=== PATIENT | male | born 1955 | race Caucasian/White ===

== ENCOUNTER 2018-10-05 08:43 | Inpatient (IN) | payer OTHER ==
[2018-10-05 09:37] VITALS: BMI 21.3
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
[2018-10-05] MEDS ORDERED: BISMUTH SUBSALICYLATE 524 MG/30 ML UD PO PRN (10:37)
[2018-10-05] MEDS ORDERED: MAG HYDROX/AL HYDROX/SIMETH 30 ML UNIT-DOSE CUP PO PRN (10:37)
[2018-10-05] MEDS ORDERED: hydrOXYzine PAMOATE 25 MG CAPSULE (FP) PO PRN (10:37)
[2018-10-05] MEDS ORDERED: chlordiazePOXIDE HCL 25 MG CAPSULE PO PRN (10:37)
[2018-10-05] MEDS ORDERED: MENTHOL/PHENOL 1 EACH UD MM PRN (10:37)
[2018-10-05] MEDS ORDERED: ACETAMINOPHEN 325 MG TABLET (FP) PO PRN ×2 (10:37)
[2018-10-05] MEDS ORDERED: MELATONIN 5 MG TABLETS PO PRN (10:37)
[2018-10-05] MEDS ORDERED: METHOCARBAMOL 500 MG TABLET PO PRN (10:37)
[2018-10-05] MEDS ORDERED: IBUPROFEN 400 MG TABLET (FP) PO PRN (10:37)
[2018-10-05] MEDS: NICOTINE 21 MG/24 HOURS TOPICAL PATCH TD SCH (11:48)
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
[2018-10-05 14:46] LABS: ALBUMIN 4.2 g/dl (3.4-5.0); BILIRUBIN,TOTAL 1.7 mg/dL (0.2-1); BLOOD UREA NITROGEN 8.2 mg/dL (7-18); CALCIUM 9.8 mg/dL (8.5-10.1); CREATININE 0.8 mg/dL (0.55-1.3); POTASSIUM 3.8 mmol/L (3.5-5.1); TOT PROT 6.6 g/dl (6.4-8.2)
[2018-10-05 14:51] LABS: HEMATOCRIT 40.6 % (35.4-49); HEMOGLOBIN 13.8 GM/dL (11.7-16.9); MCH 29.1 pg (25.7-33.7); MCHC 33.9 g/dl (32.0-35.9); MEAN CELL VOLUME 85.9 fl (80-96); MEAN PLT VOLUME 8.6 fl (7.5-11.1); RBC 4.73 M/mm3 (4.00-5.60); RDW 14.6 % (11.9-15.9); WHITE BLOOD COUNT 7.1 K/mm3 (4.0-10.0)
[2018-10-05 15:04] LABS: PLATELET COUNT 261 K/MM3 (134-434)
[2018-10-05] MEDS: SERTRALINE HCL 50 MG TABLET (FP) PO SCH (16:01)
[2018-10-05] MEDS: chlordiazePOXIDE HCL 25 MG CAPSULE PO SCH ×2 (17:55→22:11)
[2018-10-05] MEDS: traZODone HCL 100 MG TABLET (FP) PO SCH (22:11)
[2018-10-05] MEDS: THIAMINE HCL 100 MG TABLET (FP) PO SCH (22:11)
[2018-10-05] MEDS: LITHIUM CARBONATE 450 MG TABLET.ER PO SCH (22:11)
[2018-10-06] MEDS: chlordiazePOXIDE HCL 25 MG CAPSULE PO SCH ×4 (06:17→22:10)
[2018-10-06] MEDS: LITHIUM CARBONATE 450 MG TABLET.ER PO SCH ×2 (10:20→22:12)
[2018-10-06] MEDS: SERTRALINE HCL 50 MG TABLET (FP) PO SCH (10:20)
[2018-10-06] MEDS: PRENATAL VITAMINS W/ FOLIC ACID TABLET (FP) PO SCH (10:20)
[2018-10-06] MEDS: PANTOPRAZOLE 40 MG TABLET (FP) PO SCH (10:20)
[2018-10-06] MEDS: NICOTINE 21 MG/24 HOURS TOPICAL PATCH TD SCH (10:22)
--- NOTE | 2018-10-06 10:45 | PN ---
S CIWA - CIWA Score Nausea/Vomitin Muscle Tremors: 2 Anxiety: 2 Agitation: 2 Paroxysmal Sweats: 1-Minimal Palms Moist Orientation: 0-Oriented Tacttile Disturbances: 1-Very Mild Itch/Numbness Auditory Disturbances: 1-Very Mild Visual Disturbances: 0-None Headache: 1-Very Mild CIWA-Ar Total Score: 12 BHS Progress Note (SOAP) Subjective: alert,irritable,anxious,interrupted sleep,tremor Objective: 10/06/18 10:44 Vital Signs Temperature 97.5 F L 10/06/18 10:03 Pulse Rate 63 10/06/18 10:03 Respiratory Rate 18 10/06/18 10:03 Blood Pressure 132/77 10/06/18 10:03 O2 Sat by Pulse Oximetry (%) Laboratory Last Values WBC 7.1 K/mm3 (4.0-10.0) 10/05/18 10:30 RBC 4.73 M/mm3 (4.00-5.60) 10/05/18 10:30 Hgb 13.8 GM/dL (11.7-16.9) 10/05/18 10:30 Hct 40.6 % (35.4-49) 10/05/18 10:30 MCV 85.9 fl (80-96) 10/05/18 10:30 MCH 29.1 pg (25.7-33.7) 10/05/18 10:30 MCHC 33.9 g/dl (32.0-35.9) 10/05/18 10:30 RDW 14.6 % (11.9-15.9) 10/05/18 10:30 Plt Count 261 K/MM3 (134-434) 10/05/18 10:30 MPV 8.6 fl (7.5-11.1) 10/05/18 10:30 Sodium 136 mmol/L (136-145) 10/05/18 10:30 Potassium 3.8 mmol/L (3.5-5.1) 10/05/18 10:30 Chloride 105 mmol/L (98-107) 10/05/18 10:30 Carbon Dioxide 22 mmol/L (21-32) 10/05/18 10:30 Anion Gap 10 MMOL/L (8-16) 10/05/18 10:30 BUN 8.2 mg/dL (7-18) 10/05/18 10:30 Creatinine 0.8 mg/dL (0.55-1.3) 10/05/18 10:30 Est GFR (CKD-EPI)AfAm 110.96 10/05/18 10:30 Est GFR (CKD-EPI)NonAf 95.74 10/05/18 10:30 Random Glucose 129 mg/dL (74-106) H 10/05/18 10:30 Calcium 9.8 mg/dL (8.5-10.1) 10/05/18 10:30 Total Bilirubin 1.7 mg/dL (0.2-1) H 10/05/18 10:30 AST 24 U/L (15-37) 10/05/18 10:30 ALT 25 U/L (13-61) 10/05/18 10:30 Alkaline Phosphatase 60 U/L (45-117) 10/05/18 10:30 Total Protein 6.6 g/dl (6.4-8.2) 10/05/18 10:30 Albumin 4.2 g/dl (3.4-5.0) 10/05/18 10:30 RPR Titer Nonreactive (NONREACTIVE) 10/05/18 10:30 Assessment: 10/06/18 10:45 withdrawal symptom Plan: continue detox,fasting glucose in am,,initial glucose is 129
--- NOTE | 2018-10-06 12:22 | EKG ---
Test Reason : Blood Pressure : / mmHG Vent. Rate : 050 BPM Atrial Rate : 050 BPM P-R Int : 168 ms QRS Dur : 094 ms QT Int : 480 ms P-R-T Axes : 047 072 067 degrees QTc Int : 437 ms POOR DATA QUALITY, INTERPRETATION MAY BE ADVERSELY AFFECTED SINUS BRADYCARDIA OTHERWISE NORMAL ECG NO PREVIOUS ECGS AVAILABLE Confirmed by MD JERICA, TONIO ([id number]) on 10/06/2018 12:22:28 PM Referred By: Confirmed By:TONIO PIZANO MD
--- NOTE | 2018-10-06 17:50 | PN ---
S Progress Note Note: Pt states he is getting minipress 4mg for PTSD. This was not noted on admission or nor in the note by Dr. Allen- . There is an indication for minipress in PTSD- will order 4mg and referral to Tiffany to see pt again.
[2018-10-06] MEDS: MAGNESIUM HYDROX 2400MG/30ML ORAL SUSPENSION 30 ML CUP PO PRN (18:20)
[2018-10-06 19:06] LABS: EPI CELLS 8.3 /HPF (0-5/HPF); HYALINE CASTS 42 /lpf (0-8); PH,URINE 6.5 (5.0-8.0); URINE APPEARANCE TURBID; URINE BACTERIA >9000 /hpf (NEGATIVE); URINE BILIRUBIN NEGATIVE (NEGATIVE); URINE COLOR DK YELLOW; URINE GLUCOSE (UA) NEGATIVE (NEGATIVE); URINE KETONE TRACE (NEGATIVE); URINE LEUK ESTERASE 3+ (NEGATIVE); URINE NITRITE NEGATIVE (NEGATIVE); URINE PROTEIN TRACE (NEGATIVE); URINE RBC 4 /hpf (0-4); URINE WBC 208 /hpf (0-5)
[2018-10-06 20:08] LABS: URINE CRYSTALS AMORPH URATES /hpf
[2018-10-06] MEDS ORDERED: PRAZOSIN HCL 1 MG CAPSULE PO SCH (22:00)
[2018-10-06] MEDS: traZODone HCL 100 MG TABLET (FP) PO SCH (22:10)
[2018-10-06] MEDS: THIAMINE HCL 100 MG TABLET (FP) PO SCH (22:10)
[2018-10-07] MEDS: chlordiazePOXIDE HCL 25 MG CAPSULE PO SCH ×2 (06:18→10:14)
[2018-10-07] MEDS: MAGNESIUM HYDROX 2400MG/30ML ORAL SUSPENSION 30 ML CUP PO PRN (06:20)
--- NOTE | 2018-10-07 08:40 | PN ---
[facility] Progress Note Note: Left message from nursing staff on behalf of patient requesting Prazosin for nightmares. Dr Mtz was contacted and ordered Prazosin 4 mg/hs pending reevaluation of medication by caption writer. According to external medication history, Script for 30 days supply of Prazosin 2 mg/hs, prescribed by Stephan Mayes was filled on 08/27/18 at [facility] located at [address] [place] [address]. Prazosin 4 mg/hs ordered by Dr Michael be discontinued and Prazosin 2 mg/hs niya be ordered
[2018-10-07] MEDS: SERTRALINE HCL 50 MG TABLET (FP) PO SCH (10:14)
[2018-10-07] MEDS: LITHIUM CARBONATE 450 MG TABLET.ER PO SCH ×2 (10:14→22:39)
[2018-10-07] MEDS: PRENATAL VITAMINS W/ FOLIC ACID TABLET (FP) PO SCH (10:14)
[2018-10-07] MEDS: PANTOPRAZOLE 40 MG TABLET (FP) PO SCH (10:14)
[2018-10-07] MEDS: NICOTINE 21 MG/24 HOURS TOPICAL PATCH TD SCH (10:15)
--- NOTE | 2018-10-07 11:11 | PN ---
S CIWA - CIWA Score Nausea/Vomitin-No Nausea/No Vomiting Muscle Tremors: 2 Anxiety: 2 Agitation: 2 Paroxysmal Sweats: 2 Orientation: 0-Oriented Tacttile Disturbances: 0-None Auditory Disturbances: 0-None Visual Disturbances: 0-None Headache: 0-None Present CIWA-Ar Total Score: 8 BHS Progress Note (SOAP) Subjective: anxiety sweats interrupted sleep Objective: 10/07/18 11:10 Vital Signs Temperature 97.7 F 10/07/18 08:12 Pulse Rate 62 10/07/18 08:12 Respiratory Rate 18 10/07/18 08:12 Blood Pressure 98/65 10/07/18 08:12 O2 Sat by Pulse Oximetry (%) Laboratory Tests 10/05/18 10/05/18 10/05/18 10:30 10:30 10:30 WBC 7.1 RBC 4.73 Hgb 13.8 Hct 40.6 MCV 85.9 MCH 29.1 MCHC 33.9 RDW 14.6 Plt Count 261 MPV 8.6 Sodium 136 Potassium 3.8 Chloride 105 Carbon Dioxide 22 Anion Gap 10 BUN 8.2 Creatinine 0.8 Est GFR (CKD-EPI)AfAm 110.96 Est GFR (CKD-EPI)NonAf 95.74 Random Glucose 129 H Calcium 9.8 Total Bilirubin 1.7 H AST 24 ALT 25 Alkaline Phosphatase 60 Total Protein 6.6 Albumin 4.2 Urine Color Urine Appearance Urine pH Ur Specific [place] Urine Protein Urine Glucose (UA) Urine Ketones Urine Blood Urine Nitrite Urine Bilirubin Urine Urobilinogen Ur Leukocyte Esterase Urine WBC (Auto) Urine RBC (Auto) Urine Casts (Auto) U Pathogenic Cast Auto U Epithel Cells (Auto) U Sm Round Cell (Auto) Urine Crystals (Auto) Urine Bacteria (Auto) [place] RPR Titer Nonreactive 10/05/18 10/06/18 15:45 10:15 WBC RBC Hgb Hct MCV MCH MCHC RDW Plt Count MPV Sodium Potassium Chloride Carbon Dioxide Anion Gap BUN Creatinine Est GFR (CKD-EPI)AfAm Est GFR (CKD-EPI)NonAf Random Glucose Calcium Total Bilirubin AST ALT Alkaline Phosphatase Total Protein Albumin Urine Color Dk yellow Urine Appearance Turbid Urine pH 6.5 Ur Specific [place] 1.021 Urine Protein Trace Urine Glucose (UA) Negative Urine Ketones Trace H Urine Blood Negative Urine Nitrite Negative Urine Bilirubin Negative Urine Urobilinogen 1.0 Ur Leukocyte Esterase 3+ H Urine WBC (Auto) 208 Urine RBC (Auto) 4 Urine Casts (Auto) 42 U Pathogenic Cast Auto None U Epithel Cells (Auto) 8.3 U Sm Round Cell (Auto) No Result Required. Urine Crystals (Auto) Amorph urates Urine Bacteria (Auto) >9000 [place] 0.2 L RPR Titer labs noted repeat u/a aaox3 ambulating no acute distress Assessment: 10/07/18 11:10 withdrawal sx Plan: continue detox increase fluids f/u pending u/a
[2018-10-07] MEDS: MAGNESIUM CITRATE 300 ML BOTTLE PO PRN (11:51)
[2018-10-07] MEDS ORDERED: chlordiazePOXIDE HCL 10 MG CAPSULE PO PRN (17:00)
[2018-10-07] MEDS: chlordiazePOXIDE HCL 10 MG CAPSULE PO SCH ×2 (17:38→22:38)
[2018-10-07] MEDS: THIAMINE HCL 100 MG TABLET (FP) PO SCH (22:38)
[2018-10-07] MEDS: traZODone HCL 100 MG TABLET (FP) PO SCH (22:39)
[2018-10-07] MEDS: PRAZOSIN HCL 1 MG CAPSULE PO SCH (22:39)
[2018-10-08] MEDS: chlordiazePOXIDE HCL 10 MG CAPSULE PO SCH ×3 (06:57→18:04)
[2018-10-08] MEDS: NICOTINE 21 MG/24 HOURS TOPICAL PATCH TD SCH (10:06)
[2018-10-08] MEDS: LITHIUM CARBONATE 450 MG TABLET.ER PO SCH ×2 (10:06→22:39)
[2018-10-08] MEDS: SERTRALINE HCL 50 MG TABLET (FP) PO SCH (10:07)
[2018-10-08] MEDS: PANTOPRAZOLE 40 MG TABLET (FP) PO SCH (10:07)
[2018-10-08] MEDS: PRENATAL VITAMINS W/ FOLIC ACID TABLET (FP) PO SCH (10:07)
[2018-10-08] MEDS: MAGNESIUM CITRATE 300 ML BOTTLE PO PRN (10:10)
[2018-10-08] MEDS ORDERED: MAGNESIUM CITRATE 300 ML BOTTLE PO PRN (11:17)
--- NOTE | 2018-10-08 11:20 | PN ---
S CIWA - CIWA Score Nausea/Vomitin-Mild Nausea/No Vomiting Muscle Tremors: 1-None Visible, but [place] Anxiety: 1-Mildly Anxious Agitation: 1-Slight > Activity Paroxysmal Sweats: No Perspiration Orientation: 1-Uncertain about Date Tacttile Disturbances: 1-Very Mild Itch/Numbness Auditory Disturbances: 1-Very Mild Visual Disturbances: 0-None Headache: 1-Very Mild CIWA-Ar Total Score: 8 BHS Progress Note (SOAP) Subjective: alert,irritable,anxious,interrupted sleep,constipation Objective: 10/08/18 11:19 Vital Signs Temperature 98.6 F 10/08/18 09:19 Pulse Rate 79 10/08/18 09:19 Respiratory Rate 18 10/08/18 09:19 Blood Pressure 115/55 L 10/08/18 09:19 O2 Sat by Pulse Oximetry (%) Assessment: 10/08/18 11:19 withdrawal symptom Plan: continue detox,citroma for constipation,discharge in am
[2018-10-08] MEDS: PRAZOSIN HCL 1 MG CAPSULE PO SCH (22:39)
[2018-10-08] MEDS: THIAMINE HCL 100 MG TABLET (FP) PO SCH (22:39)
[2018-10-08] MEDS: traZODone HCL 100 MG TABLET (FP) PO SCH (22:39)
[2018-10-09] MEDS: chlordiazePOXIDE HCL 10 MG CAPSULE PO SCH (06:28)
--- NOTE | 2018-10-09 09:34 | DS ---
[facility] Detox Discharge Summary Admission Date: 10/05/18 Discharge Date: 10/09/18 - History Present History: Alcohol Dependence - Physical Exam Results Vital Signs: Vital Signs Temperature 98.2 F 10/09/18 06:00 Pulse Rate 71 10/09/18 06:00 Respiratory Rate 16 10/09/18 06:00 Blood Pressure 96/58 L 10/09/18 06:00 O2 Sat by Pulse Oximetry (%) - Treatment Hospital Course: Detox Protocol Followed, Detoxed Safely, Responded well, Discharged Condition Good, Rehab Referral Accepted - Medication Discharge Medications: Ambulatory Orders Docusate Sodium 100 mg PO BID PRN 10/05/18 [place] Carbonate [Eskalith -] 450 mg PO BID 10/05/18 Pantoprazole Sodium 40 mg PO DAILY 10/05/18 Sertraline HCl 50 mg PO DAILY 10/05/18 traZODone HCL [Trazodone HCl] 100 mg PO HS 10/05/18 - Diagnosis (1) Alcohol dependence with uncomplicated withdrawal Current Visit: Yes Status: Chronic (2) Alcohol related seizure Current Visit: Yes Status: Acute (3) Alcohol-induced mood disorder Current Visit: Yes Status: Acute (4) Alcohol-induced sleep disorder Current Visit: Yes Status: Acute (5) Depression Current Visit: Yes Status: Acute (6) Syncope Current Visit: Yes Status: Acute (7) Bipolar disorder Current Visit: Yes Status: Chronic (8) Nicotine dependence Current Visit: Yes Status: Chronic Qualifiers: Nicotine product type: cigarettes Substance use status: uncomplicated Qualified Code(s): F17.210 - Nicotine dependence, cigarettes, uncomplicated (9) History of abdominal surgery Current Visit: Yes Status: Resolved (10) History of intestinal obstruction Current Visit: Yes Status: Resolved (11) PTSD (post-traumatic stress disorder) Current Visit: Yes Status: Chronic - AMA Did Patient Leave Against Medical Advice: No (going home; declined aftercare)
[2018-10-09] MEDS ORDERED: SODIUM PHOSPHATE/NA BIPHOS 133 ML ENEMA PR ONE (10:44)
--- NOTE | 2018-10-09 10:46 | PN ---
[facility] Progress Note Note: constipated,will give fleet enema today
[2018-10-09] MEDS: NICOTINE 21 MG/24 HOURS TOPICAL PATCH TD SCH (11:48)
[2018-10-09] MEDS: LITHIUM CARBONATE 450 MG TABLET.ER PO SCH (11:48)
[2018-10-09] MEDS: PRENATAL VITAMINS W/ FOLIC ACID TABLET (FP) PO SCH (11:49)
[2018-10-09] MEDS: PANTOPRAZOLE 40 MG TABLET (FP) PO SCH (11:49)
[2018-10-09] MEDS: SERTRALINE HCL 50 MG TABLET (FP) PO SCH (11:50)
[2018-10-09 14:03] VITALS: BP 139/78; PULSE 89; TEMP 98.1
== END 2018-10-09 12:00 | disposition home or self-care (01) | DRG 775 ==
LOC: YASAS 08:43 → Y6N 10:48
PROVIDERS: ADMIT Surgery; ATTEND Surgery
PROC: HZ2ZZZZ Detoxification Services for Substance Abuse Treatment (ICD-10-PCS; principal; 2018-10-05)
DX: F10.230 Alcohol dependence with withdrawal, uncomplicated (principal); F17.210 Nicotine dependence, cigarettes, uncomplicated; F10.24 Alcohol dependence with alcohol-induced mood disorder; F10.282 Alcohol dependence with alcohol-induced sleep disorder; F31.9 Bipolar disorder, unspecified; F43.10 Post-traumatic stress disorder, unspecified; F32.9 Major depressive disorder, single episode, unspecified; G40.509 Epileptic seizures related to external causes, not intractable, without status epilepticus; R55 Syncope and collapse; K59.00 Constipation, unspecified; Z98.890 Other specified postprocedural states; Z87.442 Personal history of urinary calculi
CPT/HCPCS: 36415; 80053; 80178; 81003; 82947; 85027; 86593; 93005; 93010